=== PATIENT | male | born 1980 | race Caucasian/White ===

== ENCOUNTER 2016-10-01 19:07 | Emergency (ER) | payer SELFPAY ==
[~2016-10-01] VITALS: Ht 182.9 cm; Wt 118.2 kg
[~2016-10-01 19:07] MED LIST: CLONIDINE HCL0.1 MG PO; DICYCLOMINE HCL20 MG PO; ZOLPIDEM TARTRAT5 MG PO
[2016-10-01 19:23] VITALS: BP 121/86
[2016-10-01] MEDS ORDERED: PERCOCET 5/31 TABLET PO (22:00)
[2016-10-01] MEDS ORDERED: CLEOCIN300 MG PO (22:00)
[2016-10-01] MEDS ORDERED: ZOFRAN ODT4 MG PO (22:00)
== END 2016-10-01 22:31 | disposition home or self-care (01) ==
LOC: EME 19:07
PROC: 0H9EXZZ Drainage of Left Lower Arm Skin, External Approach (ICD-10-PCS; principal; 2016-10-01)
DX: L02.414 Cutaneous abscess of left upper limb (principal); F17.200 Nicotine dependence, unspecified, uncomplicated
CPT/HCPCS: 87070; 87075; 87077; 87147; 87186; 87205; 99281; 99284

== ENCOUNTER 2016-10-03 09:04 | Emergency (ER) | payer SELFPAY ==
[~2016-10-03] VITALS: Ht 182.9 cm; Wt 119.1 kg
[~2016-10-03 09:04] MED LIST changes: +CLEOCIN300 MG PO; +PERCOCET 5/31 TABLET PO; +ZOFRAN ODT4 MG PO
[2016-10-03 09:37] VITALS: BP 125/73
== END 2016-10-03 09:38 | disposition home or self-care (01) ==
LOC: EME 09:04
DX: Z48.01 Encounter for change or removal of surgical wound dressing (principal); L02.414 Cutaneous abscess of left upper limb; M79.602 Pain in left arm; F17.200 Nicotine dependence, unspecified, uncomplicated
CPT/HCPCS: 99281; 99283

== ENCOUNTER 2016-11-21 07:34 | Emergency (ER) | payer SELFPAY ==
[~2016-11-21] VITALS: Ht 182.9 cm; Wt 113.9 kg
[2016-11-21] MEDS ORDERED: KENALOG,ARISTOC80 GM TP (08:17)
[2016-11-21] MEDS ORDERED: MEDROL DOSEPAK4 MG PO (08:17)
[2016-11-21] MEDS ORDERED: ATARAX,VISTARIL50 MG PO (08:17)
[2016-11-21 08:37] VITALS: BP 137/87
== END 2016-11-21 08:38 | disposition home or self-care (01) ==
LOC: EME 07:34
DX: L25.9 Unspecified contact dermatitis, unspecified cause (principal); L50.9 Urticaria, unspecified
CPT/HCPCS: 99281; 99283

== ENCOUNTER 2016-12-08 22:34 | Emergency (ER) | payer SELFPAY ==
[~2016-12-08] VITALS: Ht 182.9 cm; Wt 111.5 kg
[~2016-12-08 22:34] MED LIST changes: +ATARAX,VISTARIL50 MG PO; +KENALOG,ARISTOC80 GM TP; +MEDROL DOSEPAK4 MG PO
[2016-12-08] MEDS ORDERED: ATARAX,VISTARIL25 MG PO (23:32)
[2016-12-08] MEDS ORDERED: ELIMITE 5% CREA60 GM TP (23:32)
[2016-12-08 23:48] VITALS: BP 138/94
== END 2016-12-08 23:49 | disposition home or self-care (01) ==
LOC: EME 22:34
DX: B86 Scabies (principal); F17.200 Nicotine dependence, unspecified, uncomplicated
CPT/HCPCS: 99281; 99283

== ENCOUNTER 2017-01-28 10:26 | Emergency (ER) | payer SELFPAY ==
[~2017-01-28] VITALS: Ht 185.4 cm; Wt 100.2 kg
[~2017-01-28 10:26] MED LIST changes: +ATARAX,VISTARIL25 MG PO; +ELIMITE 5% CREA60 GM TP
[2017-01-28 12:40] LABS: BASOPHIL COUNT 0.1 K/uL (0-0.1); EOSINOPHIL (%) 2.2 % (0-5); EOSINOPHIL COUNT 0.1 K/uL (0-0.3); HEMATOCRIT 46.9 % (38.0-50.0); IMMATURE GRANULOCYTE (%) 0.2 % (0.0-0.7); INSTRUMENT ABS NEUTROPHIL CT 3.7 K/uL; LYMPHOCYTE COUNT 1.5 K/uL (1.0-2.8); MCH 30.3 PG (29.0-34.0); MCHC 33.9 G/DL (30.0-36.0); MCV 89.3 FL (86-99); MEAN PLAT.VOLUME 9.3 uM^3 (9.0-12.4); MONOCYTE (%) 13.6 % (3-12); MONOCYTE COUNT 0.9 K/uL (0-0.8); NEUTROPHIL (%) 58.1 % (45-76); NEUTROPHIL COUNT 3.7 K/uL (1.8-6.4); PLATELET COUNT 286 K/uL (156-360); RBC DIS.WIDTH-CV 12.8 % (11.8-14.6); RBC DIS.WIDTH-SD 41.9 % (39-53); RED BLOOD COUNT 5.25 M/uL (4.00-5.50); WHITE BLOOD COUNT 6.3 K/uL (4.1-10.2)
[2017-01-28 12:48] LABS: CHLORIDE 103 mEq/L (99-109)
[2017-01-28 12:49] LABS: POTASSIUM 3.6 mEq/L (3.7-5.4); SODIUM 139 mEq/L (136-147)
[2017-01-28 12:50] LABS: GLUCOSE 94 mg/dL (70-99)
[2017-01-28 12:52] LABS: ANION GAP 12 MEQ/L (2-14)
[2017-01-28 12:54] LABS: GFR ESTIMATE (CALCULATED) > 59 mL/min/
[2017-01-28 12:55] LABS: UREA NITROGEN (BUN) 5 mg/dL (9-23)
[2017-01-28 14:05] LABS: ADD MIUA? YES; BILIRUBIN NEGATIVE; BLOOD NEGATIVE; COLOR YELLOW ((YELLOW)); GLUCOSE (STRIP) NEGATIVE; KETONES NEGATIVE; LEUKOCYTES SMALL; NITRITE NEGATIVE; PROTEIN (STRIP) 30; SPECIFIC GRAVITY 1.018 (1.000-1.030)
[2017-01-28 14:12] LABS: BACTERIA NONE SEEN /HPF; EPITHELIAL CELLS NONE SEEN /HPF; HYALINE CASTS 0-5 /LPF; MUCUS 2+ /LPF; UCUL ADDED? YES; WHITE BLOOD CELLS 15-20 /HPF (0-5)
[2017-01-28] MEDS ORDERED: CIPRO500 MG PO (14:34)
[2017-01-28 14:41] VITALS: BP 135/97
== END 2017-01-28 14:42 | disposition home or self-care (01) ==
LOC: EME 10:26
PROVIDERS: Emergency Medicine
DX: N39.0 Urinary tract infection, site not specified (principal); F17.200 Nicotine dependence, unspecified, uncomplicated
CPT/HCPCS: 76870; 80048; 81003; 85025; 87086; 99281; 99284

== ENCOUNTER 2017-02-02 22:28 | Emergency (ER) | payer SELFPAY ==
[~2017-02-02] VITALS: Ht 185.4 cm; Wt 100.1 kg
[~2017-02-02 22:28] MED LIST changes: +CIPRO500 MG PO
[2017-02-02 22:40] VITALS: BP 145/93
[2017-02-03] MEDS ORDERED: BACTRIM,SEPT1 TABLET PO (17:55)
[2017-02-03] MEDS ORDERED: NAPROSYN500 MG PO (17:55)
== END 2017-02-03 01:45 | disposition left against medical advice (07) ==
LOC: EME 22:28
DX: R33.9 Retention of urine, unspecified (principal); Z53.21 Procedure and treatment not carried out due to patient leaving prior to being seen by health care provider

== ENCOUNTER 2017-02-03 16:09 | Emergency (ER) | payer SELFPAY ==
[~2017-02-03] VITALS: Ht 182.9 cm; Wt 99.6 kg
[2017-02-03] MEDS ORDERED: NAPROSYN500 MG PO (17:55)
[2017-02-03] MEDS ORDERED: BACTRIM,SEPT1 TABLET PO (17:55)
[2017-02-03 18:20] VITALS: BP 148/98
== END 2017-02-03 18:21 | disposition home or self-care (01) ==
LOC: EME 16:09
DX: N41.9 Inflammatory disease of prostate, unspecified (principal); Z87.440 Personal history of urinary (tract) infections; F17.200 Nicotine dependence, unspecified, uncomplicated
CPT/HCPCS: 99281; 99284; J0696

== ENCOUNTER 2017-05-08 03:21 | Emergency (ER) | payer SELFPAY ==
[~2017-05-08 03:21] MED LIST changes: +BACTRIM,SEPT1 TABLET PO; +NAPROSYN500 MG PO
== END 2017-05-08 03:23 | disposition left against medical advice (07) ==
LOC: EME 03:21
DX: R39.198 Other difficulties with micturition (principal); Z53.21 Procedure and treatment not carried out due to patient leaving prior to being seen by health care provider